=== PATIENT | female | born 1975 | race Caucasian/White ===

== ENCOUNTER 2020-06-02 07:40 | Outpatient (CLI) | payer MEDICAID, SELFPAY ==
[2020-06-04 10:38] LABS: Patient Race White; SARS-CoV-2 RNA Undetected (Undetected); SARS-CoV-2 Specimen Source Nasopharynx
== END 2020-06-02 08:00 ==
PROVIDERS: Nurse Practitioner Adult Health; PCP Nurse Practitioner; Visit Provider Nurse Practitioner
DX: Z11.59 Encounter for screening for other viral diseases (principal)
CPT/HCPCS: U0003

== ENCOUNTER 2020-09-20 03:05 | Outpatient (CLI) | payer MEDICAID, SELFPAY ==
--- OUTSIDE RECORDS SUMMARY | 2020-09-20 03:11 | XMS_ITS ---
:1975 External Reference #:[id number] Author Care Team Providers Name Role Phone [facility] Primary Care Provider Unavailable Allergies None recorded. Medications Name Status Start Date Stop Date ? ? compounded medication Active 01/27/2018 Not availa ble Ther-Biotic Caps Ther-Biotic Caps1 cap 2x a day compounded medication Active 01/27/2018 Not availa ble GI Fortify GI Fortify 1/2 scoop 2xday for 3/4 david s then increase to 1 scop 2xday can be put in smoothie or mixed with a little juice and water and drunk-do NOT LET sit- it will thicken and we want it to do this in your stomach compounded medication Active 02/10/2018 Not availa ble Adaptogenic Blend Tincture 60 drops 3x a day for 3 months LicoriceRhodiolaLemon BalmAstrag ulus Vitamin D3 Active ? Not available 3000iu/day Problems Name Status Onset Date Source ? Dizziness Active 01/27/2018 ? Fatigue Active 01/27/2018 ? Papular Eruption Active 01/27/2018 ? Headache Active 01/27/2018 ? Reduced Libido Active 01/27/2018 ? 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 Onychomycosis Active 05/18/2018 ? Itching of Skin Active 07/31/2018 ? Procedures Date Name Performed by ? ? Caesarean Section Information not avai lable Results Lab Results None recorded. Past Encounters None recorded. Social History Tobacco Smoking Status Never Smoker Vaccine List Vaccine Type unknown 07/30/2008 Plan of Care Reminders Provider Appointments None ? ? recorded. Lab None ? ? recorded. Referral None ? ? recorded. Procedures None ? ? recorded. Surgeries None ? ? recorded. Imaging None ? ? recorded. Vitals Height Weight BMI Blood Pressure 5 ft 5 in 155 lbs 25.8 kg/m2 100/74 mm[Hg]
[2020-09-21 18:45] LABS: COVID-19 RT-PCR UVMMC Result Negative (Negative)
== END 2020-09-20 03:25 ==
PROVIDERS: PCP Nurse Practitioner; Visit Provider Nurse Practitioner
DX: Z20.828 Contact with and (suspected) exposure to other viral communicable diseases (principal)
CPT/HCPCS: U0003

== ENCOUNTER 2021-06-27 11:32 | Outpatient (REF) | payer MEDICAID, SELFPAY | END 2021-06-27 11:33 | disposition home or self-care (01) | LOC: LBN 11:32 | PROVIDERS: PCP Nurse Practitioner; Visit Provider Nurse Practitioner | DX: R30.0 Dysuria (principal) | CPT/HCPCS: 87077; 87086 ==

== ENCOUNTER 2021-07-11 14:36 | Outpatient (REF) | payer MEDICAID, SELFPAY ==
--- NOTE | 2021-07-11 13:30 | PAPFT_PTH ---
PATIENT: Aleksandra Livingston LOC: [facility] U#:[id number] AGE/SX: 46/F ROOM: RE07/11/[address]: Amarilis Ordonez APRN : 1975 BED: DIS: 07/11/2021 SPEC #: [id number] RECD: 07/12/21 11:52 STATUS: SUZAN RERa #: [id number] DEE: 07/11/21 13:[address]: Amarilis Ordonez DEPT: [facility] Cytology RECD BY: Carmen Jones Tissues: 1 - CX/ENDOCX FOR PAP SMEARS Procedures: PAP THIN PREP/UVM Screening HPV DNA PROBE Comments: [id number]
== END 2021-07-11 14:37 | disposition home or self-care (01) ==
LOC: LBN 14:36
PROVIDERS: PCP Nurse Practitioner; Referring Provider Nurse Practitioner; Visit Provider Nurse Practitioner
DX: Z12.4 Encounter for screening for malignant neoplasm of cervix (principal); Z11.51 Encounter for screening for human papillomavirus (HPV); Z01.419 Encounter for gynecological examination (general) (routine) without abnormal findings
CPT/HCPCS: 88142; 87624

== ENCOUNTER 2022-02-19 12:28 | Outpatient (REF) | payer MEDICAID, SELFPAY | END 2022-02-19 12:29 | disposition home or self-care (01) | LOC: LBN 12:28 | PROVIDERS: PCP Nurse Practitioner; Visit Provider Family Medicine | DX: J06.9 Acute upper respiratory infection, unspecified (principal); J02.9 Acute pharyngitis, unspecified | CPT/HCPCS: 87070 ==

== ENCOUNTER 2022-09-17 15:59 | Outpatient (REF) | payer MEDICAID, SELFPAY | END 2022-09-17 16:00 | disposition home or self-care (01) | LOC: LBN 15:59 | PROVIDERS: PCP Nurse Practitioner; Visit Provider Nurse Practitioner | DX: R35.0 Frequency of micturition (principal); R39.89 Other symptoms and signs involving the genitourinary system | CPT/HCPCS: 87086 ==

== ENCOUNTER 2022-10-01 03:44 | Outpatient (CLI) | payer MEDICAID, SELFPAY ==
[2022-10-01 09:13] LABS: HCT 38.8 % (36.0-46.0); HGB 12.7 g/dL (11.2-15.7); MCH 30.4 pg (27.0-33.0); MCHC 32.7 % (32.0-36.0); MCV 93 fL (80-95); MPV 8.9 fL (8.0-11.0); Platelet Count 327 10^3/uL (130-400); RBC 4.18 10^6/uL (3.93-5.22); RDW-SD 41.4 fL; WBC 6.06 10^3/uL (4.4-10.8)
[2022-10-01 10:08] LABS: ALT 16 U/L (14-59); AST 11 U/L (15-37); Albumin 4.1 g/dL (3.4-5.0); Alkaline Phosphatase 49 U/L (46-116); Anion Gap 7.6 mmol/L (3-11); BUN 18 mg/dL (7-18); Bilirubin, Total 0.4 mg/dL (0.2-1.0); CO2 27.4 mmol/L (21.0-32.0); CREATININE 0.9 mg/dL (0.55-1.02); Calcium 8.7 mg/dL (8.5-10.1); Chloride 105 mmol/L (98-107); Estimated GFR 79.85 (mL/min/1.73m2); Glucose 92 mg/dL (74-106); Sodium 140 mmol/L (136-145); Total Protein 7.4 g/dL (6.4-8.2)
[2022-10-01 10:26] LABS: Calculated LDL 108 mg/dL (<100); Cholesterol 223 mg/dL (<200); HDL Cholesterol 107 mg/dL (40-60); Triglyceride 44 mg/dL (<150)
== END 2022-10-01 03:45 | disposition home or self-care (01) ==
LOC: LBO 03:44
PROVIDERS: PCP Nurse Practitioner; Visit Provider Nurse Practitioner
DX: R14.0 Abdominal distension (gaseous) (principal); Z13.220 Encounter for screening for lipoid disorders
CPT/HCPCS: 36415; 80053; 80061; 85027

== ENCOUNTER 2023-06-30 07:38 | Day surgery (SDC) | payer MEDICAID, SELFPAY ==
--- NOTE | 2023-06-29 20:46 | W.PM.DSUDISC ---
Date of service: 06/30/23 Time of Service: 09:58 Discharge Plan Disposition Patient Disposition: Home Condition: Good Discharge Details Reason For Visit: screening colonoscopy Attending Provider: Luciano Lambert Primary Care Provider: Amarilis Ordonez Home Meds and New Rx's Prescriptions: Continued valacyclovir 500 mg tablet 500 mg PO DAILY Qty: 90 1RF Discontinued polyethylene glycol 3350 17 gram/dose powder 238 g PO ONCE Qty: 238 0RF Rx Instructions: take per colonoscopy instructions bisacodyl [Dulcolax (bisacodyl)] 5 mg tablet,delayed release (DR/EC) 5 mg PO ONCE Qty: 4 0RF Rx Instructions: take per colonoscopy instructions Discharge Instructions Additional Instructions: Aleksandra, we were able to complete your colonoscopy today without any problems. It was totally normal. You will need another colonoscopy in 10 years. 1. If tolerated, consume a soft, low fiber diet for 1-2 days. 2. Do not drive, drink alcohol, operate machinery, make critical decisions, or do activities that require coordination or balance for 24 hours. 3. Because air was put into your colon during the procedure, expelling air from your rectum (passing gas or farting) is normal. 4. You may not have a bowel movement for 1-3 days because of the colonoscopy prep. This is normal. 5. Go directly to the emergency room if you notice any of the following: Develop chills (warm to touch), or if you have a thermometer and your temperature is above 101 Difficulty breathing or difficultly swallowing Persistent vomiting Severe abdominal pain, other than gas cramps Severe chest pain Black, tarry stools Any bleeding ? exceeding one tablespoon 6. Call your physician if the site where your intravenous was started becomes red, swollen, painful, and warm to touch. 7. Your physician has reviewed your pre-procedure medications. Please continue to take those medications as previously ordered. You will be given specific information/education regarding any changes to your medications before leaving. Activity:: Activity as Tolerated Diet:: As Tolerated Discharge Orders Discharge Orders: Discharge Order (Routine); Ordered 06/29/23 Ordered By: Luciano Lambert DS: Diagnosis Discharge Diagnosis (1) Screening for colorectal cancer: Status: Acute Asessment and Plan: Negative screening colonoscopy; follow-up in 10 years
--- NOTE | 2023-06-29 20:48 | W.COLOREPORT ---
Date of service: 06/30/23 Time of Service: 09:59 Colonoscopy Report Date of procedure: 06/30/23 Pre-op diagnosis general: screening colonoscpoy Post-op diagnosis procedure note: other (Negative screening colonoscopy) Procedure: Colonoscopy Surgeon: Luciano Lambert Anesthesia Type: General:No Airway Estimated blood loss (mL): 0 Pathology: none sent Complications: None Disposition: same day Indications: Aleksandra is 48 years old and she is undergoing a screening colonocsopy Prep: Miralax/Dulcolax Procedure Start Time: 09:33 Procedure End Time: :47 Retraction Time: 6 Findings: Normal screening colonoscopy Procedure Description: After the induction of monitored anesthetic care, and with the patient in left lateral decubitus position, I began by performing an external anorectal exam.? Perineum and skin were normal, as was the anal verge.? There was no evidence of external hemorrhoids.? Next, I performed a digital rectal exam.? I did not appreciate any abnormal findings.? Next, I advanced a colonoscope into the rectal vault.? I performed retroflexion.? This was normal.? Using insufflation, I then advanced the colonoscope beyond the rectal folds and into the sigmoid colon before advancing towards the cecum.? The quality of the prep was excellent.? The scope was noted to be in the cecum by identification of the ileocecal valve and appendiceal orifice.? I then began withdrawing the colonoscope using repeated irrigation as necessary for full evaluation of the colonic mucosa. ?Once the scope was withdrawn to the level of the rectum, great care was taken to examine portions of the rectal folds.? I did not see any signs of tumors, polyps, or any other abnormalities. Finally, the scope was withdrawn and the patient was brought to the same-day surgery recovery unit as the anesthetic wore off. ?The findings and instructions were shared with the patient prior to discharge.
[2023-06-30 07:40] VITALS: BP 110/83; PULSE 79; RESP 18; TEMP 36.4; O2SAT 100
[2023-06-30] MEDS: Lactated Ringers 1,000 ML 80 ML IV (08:05)
--- NOTE | 2023-06-30 09:12 | W.ANESPRE ---
General Info Date of Service Date Performed: 06/30/23 Height: 5 ft 5 in Weight: 69.7 kg Body Mass Index (BMI): 25.5 Surgical Procedure: Operation Date: 06/30/23 09:05 Proposed Procedure Side Surgeon p Colonoscopy Luciano Lambert MD Actual Procedure Side Surgeon p Colonoscopy Luciano Lambert MD Pre-Op Diagnosis Post-Op Diagnosis COLORECTAL CANCER SCREENING Meds Allergies and Home Medications Allergies Allergy/AdvReac Type Severity Reaction Status Date / Time No Known Drug Allergies Allergy Verified 06/30/23 07:49 Home Medication Medication Instructions Recorded valacyclovir 500 mg tablet 500 mg PO DAILY #90 tabs 12/23/22 Current Visit Medications: Current Medications Generic Name Dose Route Start Last Admin Trade Name Freq PRN Reason Stop Dose Admin Hyoscyamine Sulfate 0.125 mg 06/29/23 20:49 Hyoscyamine 0.125 Mg Sl/Oral/Chew SL 07/29/23 20:48 DIRECTED PRN Ringer's Solution 1,000 mls @ 80 mls/hr 06/30/23 06:00 06/30/23 08:05 IV 07/27/23 23:59 80 mls/hr INFUSION CHAKA Administration IV Miscellaneous Supplies 1 each 06/30/23 06:00 Iv Access IV 07/27/23 23:59 DIRECTED CHAKA Ondansetron HCl 4 mg 06/29/23 20:49 Ondansetron 4 Mg/2 Ml Vial IVP 07/29/23 20:48 Q4H PRN PRN Nausea / Vomiting Sodium Chloride 0 ml 06/30/23 06:00 Normal Saline Flush 10 Ml Syr IV 07/27/23 23:59 PRN PRN Sodium Chloride 0 ml 06/30/23 06:00 Normal Saline 10 Ml Vial IJ 07/27/23 23:59 DIRECTED PRN Sterile Water 0 ml 06/30/23 06:00 Water,Injection,Sterile 10 Ml Vial IJ 07/27/23 23:59 DIRECTED PRN PFSH Active Problems Active Problems: Problem Status Onset Code Screening for colorectal cancer Z12.11, Z12.12 Verruca vulgaris ~10/2022 B07.9 Actinic cheilitis ~10/2022 L56.8 SARS-CoV-2 positive ~11/2021 U07.1 Annual physical exam Z00.00 Family history of melanoma Z80.8 UTI (urinary tract infection) N39.0 Medical History Medical History Jacobsen angioma (~10/2022) Common wart (~10/2022) Fatigue (04/16/17) Keratosis, seborrheic (~10/2022) Lentigines (~10/2022) Multiple benign nevi (~10/2022) Seasonal affective disorder (08/25/17) Vertigo (04/16/17) Surgical History Surgical History H/O: Tobacco Smoking/Tobacco Use Status: Never Passive smoking exposure: No Second hand exposure: No Alcohol Alcohol Intake: current Alcohol intake frequency: a few times a week Substance Use Substance use: Never Substance use type: does not use Vital Signs and Lab Results Vital Signs Most Recent Vital Signs in EMR: Most Recent Vital Signs Temp Pulse Resp BP Pulse Ox 36.4 C L 79 18 110/83 100 06/30/23 07:40 06/30/23 07:40 06/30/23 07:40 06/30/23 07:40 06/30/23 07:40 Point of Care Results Point of Care Results: POC- Test(urine) Negative 06/30/23 08:04 Lab Results Blood Type / Crossmatch: No Data to Display Complete Blood Count: No Data to Display Complete Metabolic Panel: No Data to Display Liver Function Panel: No Data to Display Coagulation Panel: No Data to Display Cardiac Panel: No Data to Display Arterial Blood Gas: No Data to Display Venous Blood Gas: No Data to Display Pancreas Panel: No Data to Display Thyroid Panel: No Data to Display Infectious Disease: No Data to Display Blood Cultures: No Data to Display Toxicology Panel: No Data to Display Panel: No Data to Display Anesthesia Assessment and Plan Anesthesia History Personal History: No History of Anesthesia Complications Family History: No Family History of Anesthesia Complications Exercise Tolerance Exercise Tolerance: Metabolic Equivalents>4 Pertinent Negatives Pertinent Negatives: No Symptoms of GERD, No Major Cardiovascular Symptoms or Complaints, No Major Pulmonary Symptoms or Complaints and No History of CVA/TIA Cardiac & Pulmonary Exam Cardiac Exam: Normal S1/S2 Heart Sounds Pulmonary Exam: Clear Bilateral Breath Sounds Implantable Cardiac Device Does patient have a Pacemaker or an ICD?: No Airway Exam Known Difficult Airway: No Mallampati Class: 2 Mouth Opening: Normal (> 3cm) Thyromental Distance: Greater than 3 cm Neck Range of Motion: Full ROM Neck Circumference: Normal Teeth Condition: Normal Dentition ASA Classification ASA Score: ASA 2 Emergency Case?: No NPO Status NPO Status: NPO Clears >2 hours, Solids >8 hours Status Status: Negative HCG Anesthesia Plan Resuscitation Status: Full Code Anesthesia Technique: General Anesthesia Airway Planned: Natural Airway Monitors Used: Standard Monitors Preoperative Comments:: NPO violation with clears at 0700: waiting until after 0900.
[2023-06-30 09:13] VITALS: BMI 25.5
[2023-06-30 09:51] VITALS: BP 105/80; PULSE 89; RESP 18; TEMP 36.5; O2SAT 98
[2023-06-30 10:10] VITALS: BP 123/87; PULSE 65; RESP 18; TEMP 36.6; O2SAT 98
--- NOTE | 2023-06-30 10:21 | W.ANESPOSTOP ---
Postoperative Evaluation Date, Time and Location Date Performed: 06/30/23 Time Performed: 10:21 Patient Location: Day Surgery Unit Vital Signs Most Recent Imported Vital Signs: Most Recent Vital Signs Temp Pulse Resp BP Pulse Ox 36.6 C 65 18 123/87 98 06/30/23 10:10 06/30/23 10:10 06/30/23 10:10 06/30/23 10:10 06/30/23 10:10 Pain Score Most Recent Pain Score: Most Recent Pain Score Pain Level 0 06/30/23 10:10 Assessment Mental Status: Awake (Alert & Oriented to Patient Baseline) Airway and Respiratory Function: Patent airway with normal (patient baseline) respiratory exam Cardiovascular Function: Hemodynamically Stable Hydration Status: Adequately Hydrated Nausea & Vomiting: No Nausea or Vomiting Pain: Pt. Denies Any Pain Peripheral Nerve Block: Patient did not receive a nerve block
== END 2023-06-30 10:19 | disposition home or self-care (01) ==
PROVIDERS: PCP Nurse Practitioner; Visit Provider Surgery
PROC: 0DJD8ZZ Inspection of Lower Intestinal Tract, Via Natural or Artificial Opening Endoscopic (ICD-10-PCS; CPT 45378; principal; 2023-06-30 09:00)
DX: Z12.11 Encounter for screening for malignant neoplasm of colon (principal)
CPT/HCPCS: 45378; 81025

== ENCOUNTER 2025-06-30 10:25 | Outpatient (CLI) | payer BC, SELFPAY ==
--- NOTE | 2025-06-30 10:15 | DI.RAD_ITS ---
Exam(s) XR FOOT RT COMPLETE EXAM: XR FOOT RT COMPLETE CLINICAL HISTORY: pain in r foot,m25.50, polyarthralgia. TECHNIQUE: 2D digital imaging was performed. Three views. COMPARISON: No exams were available for comparison FINDINGS: BONES: No acute fracture is present. No bony destructive lesion is seen. There is a prominent accessory navicular. There is a tiny plantar calcaneal spur. JOINTS: No dislocation present. There is mild narrowing of the 1st MTP joint with mild periarticular spurring. The remaining MTP joints are unremarkable. The plantar arch is maintained SOFT TISSUE: Normal. IMPRESSION: Mild degenerative changes of 1st MTP joint. DATA REPOSITORY: RADIATION DOSE DELIVERED:
--- NOTE | 2025-06-30 10:15 | DI.RAD_ITS ---
Exam(s) XR SHOULDER RT COMPLETE 2+V EXAM: XR SHOULDER RT COMPLETE 2+V CLINICAL HISTORY: pain in r shoulder,m25.50, polyarthralgia. TECHNIQUE: 2D digital imaging was performed. Five views. COMPARISON: No exams were available for comparison FINDINGS: BONES: No acute fracture is present. No bony destructive lesion is seen. JOINTS: No dislocation present. There are minimal degenerative changes of the AC joint. There is mild narrowing of the glenohumeral joint and mild spurring at the glenoid. SOFT TISSUE: Normal. IMPRESSION: Mild degenerative changes. DATA REPOSITORY: RADIATION DOSE DELIVERED:
--- NOTE | 2025-06-30 10:15 | DI.RAD_ITS ---
Exam(s) XR SHOULDER LT COMPLETE 2+V EXAM: XR SHOULDER LT COMPLETE 2+V CLINICAL HISTORY: pain in l shoulder,m25.50. TECHNIQUE: 2D digital imaging was performed. Five views. COMPARISON: CR XR SHOULDER RT COMPLETE 2+V from 06/30/2025 FINDINGS: BONES: No acute fracture is present. No bony destructive lesion is seen. JOINTS: No dislocation present. There are mild degenerative changes of the acromioclavicular joint. There is mild spurring. Glenohumeral joint also shows mild narrowing and mild spurring at the glenoid. SOFT TISSUE: Normal. IMPRESSION: Mild degenerative changes. DATA REPOSITORY: RADIATION DOSE DELIVERED:
== END 2025-06-30 10:45 ==
LOC: DI 10:25
PROVIDERS: PCP Nurse Practitioner; Visit Provider Family Medicine
DX: M19.071 Primary osteoarthritis, right ankle and foot (principal); M19.011 Primary osteoarthritis, right shoulder; M19.012 Primary osteoarthritis, left shoulder
CPT/HCPCS: 73030; 73630

== ENCOUNTER 2025-06-30 11:13 | Outpatient (CLI) | payer BC, SELFPAY ==
[2025-07-01 11:08] LABS: Lyme Ab w Rflx to Lyme Confirm Negative (Negative)
[2025-07-02 14:42] LABS: B. miyamotoi PCR Negative (Negative); Babesia divergens/MO-1 Negative (Negative); Ehrlichia muris eauclairensis Negative (Negative)
== END 2025-06-30 11:14 | disposition home or self-care (01) ==
LOC: LBO 11:14
PROVIDERS: PCP Nurse Practitioner; Visit Provider Family Medicine
DX: M25.50 Pain in unspecified joint (principal)
CPT/HCPCS: 36415; 87798; 86431; 86618

== ENCOUNTER 2025-07-15 04:52 | Outpatient (CLI) | payer BC, SELFPAY ==
--- NOTE | 2025-07-15 07:00 | DI.MAMMO_ITS ---
Exam(s) MAMMO SCREENING EXAM: MAMMO SCREENING CLINICAL HISTORY: screening,z12.39 TECHNIQUE: Mammograms were interpreted according to the usual protocol including computer analysis with CAD system, tomosynthesis and C-view imaging. COMPARISON: None. Baseline examination. FINDINGS: The breasts are composed of heterogeneously dense fibroglandular densities, Breast Density category C. No suspicious masses or suspicious microcalcifications are seen. In the superior left breast, on the MLO view, there is an area asymmetric density. No abnormality seen on the CC view. This may represent overlying fibroglandular tissue. On the CC view of the right breast, there is an asymmetric density laterally which also may represent a overlying fibroglandular tissue. Spot compression views and ultrasound are requested for further evaluation. No skin thickening or abnormal axillary lymph nodes are seen. IMPRESSION: BI-RADS Category 0 - Incomplete: Need additional imaging evaluation of both breasts. Breast Density: Category C - The breasts are heterogeneously dense, which may obscure small masses. Breast density Category C or D implies that the patient has dense breast tissue. Dense breast tissue can make it harder to find cancer on a mammogram. Dense breast tissue is also associated with an increased risk of breast cancer. This information about the result of the mammogram report was provided to the patient to raise their awareness. Use this report when you speak with the patient about their risks for breast cancer, which includes their family history. At that time, you may recommend additional screening tests (Ultrasound or MRI) as these tests may add significant information. A negative radiographic report should not delay biopsy if a dominant or clinically suspicious mass is present. Up to ten percent of cancers are not identified on mammography. A negative report may reinforce clinical impression. Adenosis and dense breasts may obscure an underlying neoplasm. False positive reports average 6 to 10%.
== END 2025-07-15 05:12 ==
LOC: DI 04:52
PROVIDERS: PCP Nurse Practitioner; Visit Provider Family Medicine
DX: Z12.31 Encounter for screening mammogram for malignant neoplasm of breast (principal); R92.323 Mammographic fibroglandular density, bilateral breasts; R92.333 Mammographic heterogeneous density, bilateral breasts
CPT/HCPCS: 77063; 77067

== ENCOUNTER 2025-07-28 03:46 | Outpatient (CLI) | payer BC, SELFPAY ==
--- NOTE | 2025-07-28 | DI.US_ITS ---
Exam(s) US BREAST LT COMPLETE US BREAST RT COMPLETE MG MAMMO SCREEN CALL BACK BI EXAM: MG MAMMO SCREEN CALL BACK BI CLINICAL HISTORY: RT ASYMMETRIC DENSITY LATERALLY ? OVERLYING FIBROGLANDULAR TISSUE R92.8. TECHNIQUE: Bilateral spot mammographic images obtained with 3D tomosynthesisand utilizing computer aided detection (CAD). . Complete bilateral breast Ultrasound was also performed, including all 4 quadrants, the retroareolar region, and the bilateral axillary regions. COMPARISON: Prior mammograms were reviewed. This additional imaging was performed due to findings described on the recent screening baseline mammogram of 07/15/2025. FINDINGS: DIAGNOSTIC MAMMOGRAM: Additional mammographic views of both breasts performed todayrender previously described areas less concerning. COMPLETE BILATERAL BREAST ULTRASOUND: Ultrasound performed today reveals no evidence of solid or significant cystic lesions in all 4 quadrants of both breasts. Scanning of both axillary regions reveals no significant adenopathy. IMPRESSION: 1. No radiographic evidence of malignancy. 2. Negative complete bilateral breast ultrasound examination. Appropriate follow-up is to keep this patient on a yearly mammogram schedule, with earlier imaging if a self detected breast change is noted.. The patient was informed of these findings and recommendations by myself prior to leaving the department today. BI-RADS Category 2 - Benign Findings Breast Density - Category C - The breast are heterogeneously dense, which may obscure small masses. Breast density Category C or D implies that the patient has dense breast tissue. Dense breast tissue can make it harder to find cancer on a mammogram. Dense breast tissue is also associated with an increased risk of breast cancer. This information about the result of the mammogram report was provided to the patient to raise their awareness. Use this report when you speak with the patient about their risks for breast cancer, which includes their family history. At that time, you may recommend additional screening tests (Ultrasound or MRI) as these tests may add significant information. A negative radiographic report should not delay biopsy if a dominant or clinically suspicious mass is present. Up to ten percent of cancers are not identified on mammography. A negative report may reinforce clinical impression. Adenosis and dense breasts may obscure an underlying neoplasm. False positive reports average 6 to 10%. Patient will receive a letter notifying them of these results.
== END 2025-07-28 04:06 ==
LOC: DI 03:46
PROVIDERS: PCP Nurse Practitioner; Visit Provider Family Medicine
DX: Z12.31 Encounter for screening mammogram for malignant neoplasm of breast (principal); R92.8 Other abnormal and inconclusive findings on diagnostic imaging of breast
CPT/HCPCS: 76642; 77063; 77067